=== PATIENT | male | born 1965 | race Caucasian/White ===

== ENCOUNTER 2016-10-13 | Emergency (ER) | payer MEDICARE ==
[~2016-10-13] VITALS: Ht 182.9 cm; Wt 80.0 kg
[~2016-10-13] MED LIST: DIAZ10 PO; XANA2TAB2 PO
[2016-10-13 00:02] VITALS: BP 152/87; PULSE 114; RESP 18; TEMP 98; O2SAT 99
[2016-10-13] MEDS ORDERED: LORazepam 2 MG/ML VIAL ONE (00:14)
[2016-10-13] MEDS ORDERED: HALOPERIDOL LACTATE 5 MG/ML AMP ONE (00:14)
[2016-10-13] MEDS ORDERED: diphenhydrAMINE HCL 50 MG/ML VIAL ONE (00:14)
[2016-10-13] MEDS ORDERED: TETANUS/DIPHTHERIA TOXOID ADULT 0.5 ML VIAL IM ONE (00:15)
[2016-10-13] MEDS ORDERED: diphenhydrAMINE HCL 50 MG/ML VIAL IM ONE (00:15)
[2016-10-13] MEDS ORDERED: LORazepam 2 MG/ML VIAL IM ONE (00:15)
[2016-10-13] MEDS ORDERED: HALOPERIDOL LACTATE 5 MG/ML AMP IM ONE (00:15)
--- NOTE | 2016-10-13 02:40 | RADRPT ---
EXAM DATE/TIME: 10/13/2016 01:02 [facility] COMPARISON: No previous studies available for comparison. INDICATIONS : Found unresponsive. RADIATION DOSE: 56.35 CTDIvol (mGy) MEDICAL HISTORY : Non-responsive. SURGICAL HISTORY : Non-responsive. ENCOUNTER: Initial ACUITY: 1 day PAIN SCALE: Non-responsive LOCATION: cranial TECHNIQUE: Multiple contiguous axial images were obtained of the head. Using automated exposure control and adj ustment of the mA and/or kV according to patient size, radiation dose was kept as low as reasonably a chievable to obtain optimal diagnostic quality images. DICOM format image data is available electro nically for review and comparison. FINDINGS: CEREBRUM: The ventricles are normal for age. No evidence of midline shift, mass lesion, hemorrhage or acute in farction. No extra-axial fluid collections are seen. POSTERIOR FOSSA: The cerebellum and brainstem are intact. The 4th ventricle is midline. The cerebellopontine angle i s unremarkable. EXTRACRANIAL: The visualized portion of the orbits is intact. SKULL: The calvaria is intact. No evidence of skull fracture. CONCLUSION: No acute intracranial disease. Merritt Lombardi MD on October 13, 2016 at 1:33 Board Certified Radiologist. This report was verified electronically.
--- NOTE | 2016-10-13 02:40 | RADRPT ---
EXAM DATE/TIME: 10/13/2016 01:02 [facility] COMPARISON: No previous studies available for comparison. INDICATIONS : Found unresponsive. RADIATION DOSE: 34.22 CTDIvol (mGy) MEDICAL HISTORY : Non-responsive. SURGICAL HISTORY : Non-responsive. ENCOUNTER: Initial ACUITY: 1 day PAIN SCALE: Non-responsive LOCATION: neck TECHNIQUE: Volumetric scanning of the cervical spine was performed. Multiplanar reconstructions in the sagittal, coronal and oblique axial planes were performed. Using automated exposure control and adjustment o f the mA and/or kV according to patient size, radiation dose was kept as low as reasonably achievable to obtain optimal diagnostic quality images. DICOM format image data is available electronically f or review and comparison. FINDINGS: VERTEBRAE: Normal vertebral body height. Degenerative changes C5-6. No acute fracture. Old fracture spinous proc ess C2 ALIGNMENT: No evidence of subluxation. C2-C3: The bony spinal canal is normal in size. No evidence of disc bulge or herniation. The neural forami na are bilaterally patent. C3-C4: The bony spinal canal is normal in size. No evidence of disc bulge or herniation. The neural forami na are bilaterally patent. C4-C5: The bony spinal canal is normal in size. No evidence of disc bulge or herniation. The neural forami na are bilaterally patent. C5-C6: Posterior disc osteophyte complex without significant canal stenosis. Mild neural foraminal narrowing bilaterally . C6-C7: The bony spinal canal is normal in size. No evidence of disc bulge or herniation. The neural forami na are bilaterally patent. C7-T1: The bony spinal canal is normal in size. No evidence of disc bulge or herniation. The neural forami na are bilaterally patent. CONCLUSION: 1. No acute fracture or subluxation. 2. Degenerative changes C5-6. Merritt Lombardi MD on October 13, 2016 at 1:33 Board Certified Radiologist. This report was verified electronically.
[2016-10-13] MEDS ORDERED: LIDOCAINE 1%/EPINEPHrine 1:100,000 SOLN 30 ML VIAL ONE (02:56)
[2016-10-13 03:16] VITALS: BP 137/78; PULSE 88; RESP 18; O2SAT 99
[2016-10-13] MEDS ORDERED: BACT800T5 PO (03:16)
--- NOTE | 2016-10-13 03:16 | PD ---
HPI Chief Complaint: Alcohol/Drug Intoxication Time Seen by Provider: 00:14 Travel History International Travel<30 days: No Contact w/Intl Traveler<30days: No Traveled to known affect area: No History of Present Illness HPI 51-year-old male came to the emergency room brought by the EMS as Neelam scott. Patient was found lying in prone position on the ground intoxicated. He had injury on his face. When he was brought in he was extremely combative and verbally profanity to the nurses. I was unable to do any exam or interview him. He had to be medicated for chemical restraint. [facility] Past Medical History Narrative Medical List of his past medical, surgical, social and family history was reviewed from the nursing note. Arthritis: Yes Blood Disorders: No Bipolar Disorder: Yes Anxiety: Yes Depression: Yes Heart Rhythm Problems: No Cancer: No Cardiovascular Problems: No High Cholesterol: No Chemotherapy: No Chest Pain: No Congestive Heart Failure: No Diabetes: Yes (DIET CONTROLLED) Patient Takes Glucophage: No Diminished Hearing: No Endocrine: No Hypertension: No Immune Disorder: No Musculoskeletal: Yes (BACK PAIN) Neurologic: Yes (SYNCOPE THIS ADMISSION) Psychiatric: Yes Reproductive: No Respiratory: No Myocardial Infarction: No Radiation Therapy: No Schizophrenia: Yes Seizures: Yes (states r/t head injury; last seizure several years ago) Tetanus Vaccination: > 5 Years Influenza Vaccination: No Past Surgical History Genitourinary Surgery: Yes (DONATED KIDNEY) Social History Alcohol Use: Yes (12 PK) Tobacco Use: Yes (2PPD) Substance Use: Yes Allergies-Medications (Allergen,Severity, Reaction): Coded Allergies: No Known Allergies (Verified , 10/13/16) Comments No known drug allergies. Reported Meds & Prescriptions Reported Meds & Active Scripts Active Bactrim DS (Sulfamethoxazole-Trimethoprim) 800-160 Mg Tab 1 Tab PO BID Narrative Medication List of his home medications reviewed from the nursing note. Review of Systems Except as stated in HPI: all other systems reviewed are Neg Physical Exam Narrative GENERAL: Intoxicated, combative SKIN: Focused skin assessment warm/dry. Right eyebrow laceration that's stellate shape, open and deep and bleeding. Poor skin hygiene HEAD: Atraumatic. Normocephalic. EYES: Pupils equal and round. No scleral icterus. No injection or drainage. ENT: No nasal bleeding or discharge. Mucous membranes pink and moist. NECK: Trachea midline. No JVD. CARDIOVASCULAR: Regular rate and rhythm. No murmur appreciated. RESPIRATORY: No accessory muscle use. Clear to auscultation. Breath sounds equal bilaterally. GASTROINTESTINAL: Abdomen soft, non-tender, nondistended. Hepatic and splenic margins not palpable. MUSCULOSKELETAL: No obvious deformities. No clubbing. No cyanosis. No edema. NEUROLOGICAL: Intoxicated, combative. No obvious cranial nerve deficits. Motor grossly within normal limits. Normal speech. PSYCHIATRIC: Appropriate mood and affect; insight and judgment normal. Data Data Last Documented VS Vital Signs Date Time Temp Pulse Resp B/P Pulse Ox O2 Delivery O2 Flow Rate FiO2 10/13/16 03:16 88 18 137/78 99 Room Air 10/13/16 00:02 98.0 Orders Haloperidol Inj (Haldol Inj) (10/13/16 00:15) Lorazepam Inj (Ativan Inj) (10/13/16 00:15) Diphenhydramine Inj (Benadryl Inj) (10/13/16 00:15) Tetanus/Diphtheria Tox Adult (Tetanus/Di (10/13/16 00:15) Diphenhydramine Inj (Benadryl Inj) (10/13/16 00:14) Haloperidol Inj (Haldol Inj) (10/13/16 00:14) Lorazepam Inj (Ativan Inj) (10/13/16 00:14) Ct Brain W/O Iv Contrast(Rout) (10/13/16 ) Ct Cerv Spine W/O Contrast (10/13/16 ) Lidocai-Epi 1%-1:100,000 Inj (Xylocaine- (10/13/16 02:56) MDM Medical Decision Making Medical Screen Exam Complete: Yes Emergency Medical Condition: Yes Medical Record Reviewed: Yes Differential Diagnosis Intracranial bleed, cervical fracture, laceration, acute toxic Narrative Course 2:[address] scan of his head and C-spine are negative. The facial laceration was sutured by the PA. Please refer to his notes. C-collar was taken off. Patient is in the department until he is clinically sober after which she'll be discharged home. Procedures EKG Prior to Arrival: No Diagnosis Primary Impression: Facial laceration Qualified Code: S01.81XA - Facial laceration, initial encounter Additional Impression: Acute alcohol intoxication Qualified Code: F10.929 - Acute alcohol intoxication, with unspecified complication Referrals: Primary Care Physician Additional Instructions: The stitches need to come out in 7-10 days. Take Phenergan hepatic as per the prescription direction. Med/Other Pt SpecificInfo: Prescription(s) given Scripts Sulfamethoxazole-Trimethoprim (Bactrim DS)800-160 Mg Tab1 Tab PO BID #20 TAB Ref 0 Prov:Bailey Harley MD 10/13/16 Disposition: 01 DISCHARGE HOME Condition: Stable Bailey Harley MD Oct 13, 2016 03:16
--- NOTE | 2016-10-13 03:36 | PD ---
Physical Exam Date Seen by Provider: Oct 13, 2016 Time Seen by Provider: 03:34 Narrative Skin: Patient has a 4 cm stellate laceration to the right eyebrow. No bony step off. Data Data Last Documented VS Vital Signs Date Time Temp Pulse Resp B/P Pulse Ox O2 Delivery O2 Flow Rate FiO2 10/13/16 03:16 88 18 137/78 99 Room Air 10/13/16 00:02 98.0 Orders Haloperidol Inj (Haldol Inj) (10/13/16 00:15) Lorazepam Inj (Ativan Inj) (10/13/16 00:15) Diphenhydramine Inj (Benadryl Inj) (10/13/16 00:15) Tetanus/Diphtheria Tox Adult (Tetanus/Di (10/13/16 00:15) Diphenhydramine Inj (Benadryl Inj) (10/13/16 00:14) Haloperidol Inj (Haldol Inj) (10/13/16 00:14) Lorazepam Inj (Ativan Inj) (10/13/16 00:14) Ct Brain W/O Iv Contrast(Rout) (10/13/16 ) Ct Cerv Spine W/O Contrast (10/13/16 ) Lidocai-Epi 1%-1:100,000 Inj (Xylocaine- (10/13/16 02:56) MDM Medical Record Reviewed: Yes Supervised Visit with PHONG: Yes Differential Diagnosis MDM: High Differential diagnoses: Fracture, sprain, strain, dislocation, contusion, neurovascular injury Narrative Course Patient's laceration is close with sutures. Procedures Procedure Narrative LACERATION LOCATION: Right eyebrow LENGTH: 4 cm-stellate NUMBER OF STITCHES/MICAH: 8 REPAIR: The area of the laceration was prepped with Betadine and sterilely draped. The laceration was infiltrated with 1% lidocaine with epinephrine. The wound was copiously irrigated and explored without evidence of foreign body , tendon injury or neurovascular injury. The wound was closed using 5-0 Vicryl. This was a simple single layer repair. A sterile dressing was applied. The patient was advised to keep the dressing clean and dry. Patient tolerated the procedure well. Diagnosis Primary Impression: Facial laceration Qualified Code: S01.81XA - Facial laceration, initial encounter Additional Impression: Acute alcohol intoxication Qualified Code: F10.929 - Acute alcohol intoxication, with unspecified complication Referrals: Primary Care Physician Additional Instruction: The stitches need to come out in 7-10 days. Take Phenergan hepatic as per the prescription direction. Scripts Sulfamethoxazole-Trimethoprim (Bactrim DS)800-160 Mg Tab1 Tab PO BID #20 TAB Ref 0 Prov:Bailey Harley MD 10/13/16 Disposition: 01 DISCHARGE HOME Condition: Stable Wilfred Rocha Oct 13, 2016 03:36
== END 2016-10-13 06:35 | disposition home or self-care (01) ==
LOC: NEPE
DX: S01.111A Laceration without foreign body of right eyelid and periocular area, initial encounter (principal); F10.129 Alcohol abuse with intoxication, unspecified; F31.9 Bipolar disorder, unspecified; M13.80 Other specified arthritis, unspecified site; E11.9 Type 2 diabetes mellitus without complications; F41.9 Anxiety disorder, unspecified; F17.200 Nicotine dependence, unspecified, uncomplicated; Z23 Encounter for immunization; W18.30XA Fall on same level, unspecified, initial encounter
CPT/HCPCS: 12013; 70450; 72125; 90471; 90714; 96372; 99285; J1200; J1630; J2060